=== PATIENT | female | born 1965 | race Caucasian/White ===

== ENCOUNTER → 2017-09-29 | Outpatient (CLI) | payer BC ==
--- NOTE | 2017-09-29 16:36 | KCIC ---
UPPER EXT JOINT WO CONT RIGHT dated 09/29/2017 3:30 PM Indication: Pain , pain for one year , shoulder pain no known injury Comparison: No comparison is available. Technique: Routine multiplanar multisequence imaging performed. No contrast administered. Findings: Intermediate T2 signal throughout the supraspinatus and infraspinatus portions of the rotator cuff. No full-thickness tear or cuff retraction. Subscapularis is intact. Mild to moderate hypertrophic change of the acromial clavicular joint. No significant undersurface spurring. Trace amount of subacromial/subdeltoid bursal fluid. Intermediate T2 signal within the proximal long head biceps tendon. Extra articular portion courses within the bicipital groove. There is abnormal signal and ill-definition of the posterior superior labrum small linear defect along the labral cartilaginous interface. The inferior labrum is grossly intact. Small glenohumeral joint effusion. Mild thinning of the glenoid articular cartilage. No loose body. IMPRESSION: 1. Moderate rotator cuff tendinopathy with no evidence of full-thickness tear. 2. 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 3. Small SLAP tear of the posterior superior labrum. 4. Moderate proximal biceps tendinosis. Electronically signed by: Mario Lanier MD (09/29/2017 4:33 PM) [facility]
== END | disposition home or self-care (01) ==
LOC: KCIC MRI 12:54
PROVIDERS: ATTEND Physician Assistant Surgical
DX: S43.431A Superior glenoid labrum lesion of right shoulder, initial encounter (principal); X58.XXXA Exposure to other specified factors, initial encounter; Y93.89 Activity, other specified; Y92.89 Other specified places as the place of occurrence of the external cause; Y99.8 Other external cause status
CPT/HCPCS: 73221

== ENCOUNTER → 2017-09-29 | Outpatient (CLI) | payer BC ==
--- NOTE | 2017-09-29 13:48 | KCIC ---
DATE: 09/29/2017 EXAM: MAMMO DEVAN SCREENING BILATERAL HISTORY: Routine screening COMPARISON: 12/07/2015 This study was interpreted with the benefit of Computerized Aided Detection (CAD). The breast parenchyma shows scattered fibroglandular densities. Breast parenchyma level B. FINDINGS: 2-D and 3-D tomosynthesis imaging was performed in CC and MLO projections. Several small smooth nodules in both breasts appear to be unchanged. No new or enlarging breast densities are seen. Benign type calcifications are present. No suspicious microcalcifications have developed. IMPRESSION: Stable mammograms without evidence of malignancy. BI-RADS CATEGORY: 2 BENIGN FINDING(S) RECOMMENDED FOLLOW-UP: 12M 12 MONTH FOLLOW-UP PQRS compliance statement: Patient information was entered into a reminder system with a target due date for the next mammogram. Mammography is a sensitive method for finding small breast cancers, but it does not detect them all and is not a substitute for careful clinical examination. A negative mammogram does not negate a clinically suspicious finding and should not result in delay in biopsying a clinically suspicious abnormality. "Our facility is accredited by the [employer] Mammography Program."
== END | disposition home or self-care (01) ==
LOC: KCIC MAMMO 12:51
PROVIDERS: ATTEND Family Medicine
DX: Z12.31 Encounter for screening mammogram for malignant neoplasm of breast (principal)
CPT/HCPCS: 77063; G0202; 77067